=== PATIENT | male | born 1945 | race Two or more races ===

== ENCOUNTER 2017-07-20 10:00 | Outpatient (RCR) | payer MEDICARE, OTHER, MEDICAID ==
[~2017-07-20] VITALS: Ht 165.1 cm; Wt 59.0 kg
== END 2017-08-09 | disposition home or self-care (01) ==
LOC: WCC 10:00
DX: L97.814 Non-pressure chronic ulcer of other part of right lower leg with necrosis of bone (principal); L97.812 Non-pressure chronic ulcer of other part of right lower leg with fat layer exposed; E07.9 Disorder of thyroid, unspecified; Z87.442 Personal history of urinary calculi
CPT/HCPCS: 20240; 29580; 87070; 87181; 87205; C5271; C5272; Q4124

== ENCOUNTER 2017-08-24 09:30 | Outpatient (RCR) | payer MEDICARE, OTHER | END 2017-09-08 | disposition home or self-care (01) | LOC: WCC 09:30 | DX: L97.814 Non-pressure chronic ulcer of other part of right lower leg with necrosis of bone (principal); L97.812 Non-pressure chronic ulcer of other part of right lower leg with fat layer exposed; G90.09 Other idiopathic peripheral autonomic neuropathy; M86.461 Chronic osteomyelitis with draining sinus, right tibia and fibula; E07.9 Disorder of thyroid, unspecified; Z87.442 Personal history of urinary calculi | CPT/HCPCS: 11044; 15275; 17250; 29580; Q4133 ==

== ENCOUNTER 2017-09-20 14:51 | Outpatient (RCR) | payer MEDICARE, OTHER | END 2017-10-09 | disposition home or self-care (01) | LOC: WCC 14:51 | DX: L97.814 Non-pressure chronic ulcer of other part of right lower leg with necrosis of bone (principal); L97.812 Non-pressure chronic ulcer of other part of right lower leg with fat layer exposed; G90.09 Other idiopathic peripheral autonomic neuropathy; M86.461 Chronic osteomyelitis with draining sinus, right tibia and fibula | CPT/HCPCS: 29580 ==